=== PATIENT | male | born 1975 | race Caucasian/White ===

== ENCOUNTER 2022-07-14 13:45 | Emergency (ER) | payer BC ==
[2022-07-14 13:52] VITALS: BP 126/94; PULSE 94; RESP 20; TEMP 98.2; BMI 35.9
[2022-07-14] MEDS ORDERED: IBUPROFEN 400 MG TABLET (FP) PO ONE ×2 (14:12→14:15)
== END 2022-07-14 15:27 | disposition home or self-care (01) ==
LOC: JERFT 13:45
DX: R07.89 Other chest pain (principal); S20.211A Contusion of right front wall of thorax, initial encounter; W22.8XXA Striking against or struck by other objects, initial encounter
CPT/HCPCS: 71046-TC-FY; 99283-25